=== PATIENT | female | born 1975 | race Caucasian/White ===

== ENCOUNTER 2023-01-09 21:21 | Emergency (ER) | payer OTHER ==
[2023-01-09] MEDS ORDERED: SODIUM CHLORIDE 0.9% 1,000 ML IV STA (22:03)
[2023-01-09] MEDS ORDERED: ONDANSETRON 4 MG/2 ML VIAL IVP STA (22:09)
[2023-01-09] MEDS ORDERED: KETOROLAC 15 MG/ML 1 ML VIAL IVP STA (22:25)
[2023-01-09 22:36] LABS: Basophils % (A) 0 %; Eosinophils % (A) 1 %; HCT 48.9 % (34.0-46.0); HGB 17.1 gm/dL (11.4-16.0); Hyperchromasia Slight; Lymphocytes # (A) 0.3 k/uL (1.0-4.8); Lymphocytes % (A) 3 %; MCH 31.3 pg (25.0-35.0); MCHC 35.1 g/dL (31.0-37.0); MCV 89.2 fL (80.0-100.0); Mean Platelet Volume 8.4; Monocytes # (A) 0.2 k/uL (0-1.0); Monocytes % (A) 2 %; Neutrophils % (A) 94 %; Platelet Count 157 k/uL (150-450); RBC 5.48 m/uL (3.80-5.40); RDW 12.9 % (11.5-15.5); WBC 9.5 k/uL (3.8-10.6)
[2023-01-09 22:48] LABS: ALT 24 U/L (4-34); AST 25 U/L (14-36); African American GFR (CKD) >90 (>60 ml/min/1.73 sqM); Albumin 4.5 g/dL (3.5-5.0); Alkaline Phosphatase 82 U/L (38-126); Anion Gap 12 mmol/L; Blood Urea Nitrogen 18 mg/dL (7-17); Carbon Dioxide 22 mmol/L (22-30); Chloride 105 mmol/L (98-107); Glucose 173 mg/dL (74-99); Lipase 81 U/L (23-300); Non-African American GFR(CKD) 84 (>60 ml/min/1.73 sqM); Potassium 3.7 mmol/L (3.5-5.1); Sodium 139 mmol/L (137-145); Total Bilirubin 1.2 mg/dL (0.2-1.3); Total Protein 7.9 g/dL (6.3-8.2)
--- NOTE | 2023-01-09 23:23 | CT ---
EXAMINATION TYPE: CT abdomen pelvis w con CT DLP: 1173.5 mGycm, Automated exposure control for dose reduction was used. DATE OF EXAM: 01/09/2023 11:17 PM COMPARISON: CT abdomen pelvis most recent from CLINICAL INDICATION:Female, 47 years old with history of pain vomiting; Nausea, vomiting, diarrhea. A bdominal pain. TECHNIQUE: Axial CT of the abdomen and pelvis. Sagittal and coronal reformats were created on a [employer] workstation. Contrast used:100ml mL of Isovue 300 with IV Contrast, Oral contrast used: without Oral Contrast FINDINGS: LOWER CHEST: Unremarkable ABDOMEN LIVER: Unremarkable GALLBLADDER AND BILE DUCTS: Unremarkable. PANCREAS: Unremarkable. SPLEEN: Unremarkable. ADRENAL GLANDS: Unremarkable. KIDNEYS AND URETERS: No evidence of hydronephrosis or renal calculus. The ureters are unremarkable. PELVIS BLADDER: Unremarkable REPRODUCTIVE: Right dominant ovarian follicle measuring up to 2.0 cm. Central lobular contour to the uterus suggestive of underlying fibroid. ABDOMEN & PELVIS STOMACH AND BOWEL: No evidence of bowel obstruction. Appendix is normal. PERITONEUM/RETROPERITONEUM: No evidence of pneumoperitoneum or free fluid. VASCULATURE: No evidence of aortic aneurysm. MUSCULOSKELETAL: No acute osseous abnormalities LYMPH NODES: No gross evidence for lymphadenopathy. SOFT TISSUE/ABDOMINAL WALL: Fat-containing umbilical hernia. IMPRESSION: No evidence for acute abdominal process. No bowel obstruction, appendix is normal, no obstructive uro klaudia.
--- NOTE | 2023-01-09 23:49 | ED ---
Abdominal Pain HPI - General Chief Complaint: Abdominal Pain Stated Complaint: NVD Time Seen by Provider: 01/09/23 22:02 Source: patient Mode of arrival: ambulatory Limitations: no limitations - History of Present Illness Initial Comments: Patient is a 47-year-old female presents to the emergency department for evaluation of vomiting. Patient reports intermittent generalized abdominal pain and multiple episodes of vomiting and diarrhea this evening, nonbloody. She denies fever, chills, burning with urination, blood in the urine, vaginal bleeding, vaginal discharge. She denies history of abdominal surgery. No cold- like symptoms, chest pain, shortness of breath. - Related Data Previous Rx's Medication Instructions Recorded Ibuprofen [Motrin] 800 mg PO Q8HR PRN #30 tab 01/10/23 Ondansetron Odt [Zofran Odt] 4 mg PO Q8HR PRN #10 tab 01/10/23 Allergies Allergy/AdvReac Type Severity Reaction Status Date / Time Penicillins Allergy Rash/Hives Verified 01/09/23 21:48 Review of Systems ROS Statement: Those systems with pertinent positive or pertinent negative responses have been documented in the HPI. ROS Other: All systems not noted in ROS Statement are negative. Past Medical History Past Medical History: Hypertension History of Any Multi-Drug Resistant Organisms: None Reported Past Surgical History: Section Past Psychological History: No Psychological Hx Reported Smoking Status: Never smoker Past Alcohol Use History: Occasional Past Drug Use History: None Reported General Exam Limitations: no limitations General appearance: alert, in no apparent distress Head exam: Present: atraumatic, normocephalic, normal inspection Respiratory exam: Present: normal lung sounds bilaterally. Absent: respiratory distress, wheezes, rales, rhonchi, stridor Cardiovascular Exam: Present: regular rate, normal rhythm, normal heart sounds. Absent: systolic murmur, diastolic murmur, rubs, gallop, clicks GI/Abdominal exam: Present: soft, normal bowel sounds. Absent: distended, tenderness, guarding, rebound, rigid Neurological exam: Present: alert, oriented X3, CN II-XII intact Psychiatric exam: Present: normal affect, normal mood Skin exam: Present: warm, dry, intact, normal color. Absent: rash Course Vital Signs 01/09/23 01/09/23 01/09/23 21:45 21:56 22:00 Temperature 98.0 F Pulse Rate 122 H 106 H 105 H Respiratory 22 22 21 Rate Blood Pressure 141/98 179/113 O2 Sat by Pulse 97 97 96 Oximetry 01/09/23 01/09/23 01/09/23 22:15 22:45 23:00 Temperature Pulse Rate 90 103 H Respiratory 18 17 Rate Blood Pressure 172/114 166/103 164/99 O2 Sat by Pulse 98 95 Oximetry 01/09/23 01/09/23 01/09/23 23:15 23:30 23:45 Temperature Pulse Rate 100 101 H 100 Respiratory 29 H 15 13 Rate Blood Pressure 150/93 158/103 O2 Sat by Pulse 97 96 97 Oximetry 01/09/23 01/10/23 23:53 00:00 Temperature Pulse Rate 100 96 Respiratory 16 16 Rate Blood Pressure 148/103 148/103 O2 Sat by Pulse 95 96 Oximetry Medical Decision Making - Medical Decision Making Was pt. sent in by a medical professional or institution (, PA, CABLE TOWER OPERATOR, urgent care, hospital, or intermediate...) When possible be specific @ -[No] Did you speak to anyone other than the patient for history (EMS, parent, family, police, friend...)? What history was obtained from this source @ -[No] Did you review nursing and triage notes (agree or disagree)? Why? @ -[I reviewed and agree with nursing and triage notes] Were old charts reviewed (outside hosp., previous admission, EMS record, old EKG, old radiological studies, urgent care reports/EKG's, intermediate records)? Report findings @ -[No old charts were reviewed] Differential Diagnosis (chest pain, altered mental status, abdominal pain women, abdominal pain men, vaginal bleeding, weakness, fever, dyspnea, syncope, headache, dizziness, GI bleed, back pain, seizure, CVA, palpatations, mental health)? @ -Differential Abdominal Pain Women: Appendicitis, Cholecystitis, diverticulosis, ischemic bowel, pancreatitis, hepatitis, UTI, gastroenteritis, AAA, incarcerated hernia, bowel obstruction, constipation, inflammatory bowel, hepatitis, peptic ulcer disease, splenic infarction, perforated viscus, vulvitis, ovarian torsion, PID, kidney stone, ir[place] cent[place] abruption, this is not meant to be an all-inclusive list EKG interpreted by me (3pts min.). @ -[As above] X-rays interpreted by me (1pt min.). @ -[None done] CT interpreted by me (1pt min.). @ -Yes, CT of the abdomen and pelvis with contrast is negative for acute process. U/S interpreted by me (1pt. min.). @ -[None done] What testing was considered but not performed or refused? (CT, X-rays, U/S, labs)? Why? @ -[None] What meds were considered but not given or refused? Why? @ -[None] Did you discuss the management of the patient with other professionals (professionals i.e. , PA, CABLE TOWER OPERATOR, lab, RT, psych nurse, social media designer, custodial officer, teacher, navigating officer, casework manager)? Give summary @ -[No] Was smoking cessation discussed for >3mins.? @ -[No] Was critical care preformed (if so, how long)? @ -[No] Were there social determinants of health that impacted care today? How? (Homelessness, low income, unemployed, alcoholism, drug addiction, transportation, low edu. Level, literacy, decrease access to med. care, long term, rehab)? @ -[No] Was there de-escalation of care discussed even if they declined (Discuss DNR or withdrawal of care, Hospice)? DNR status @ -[No] What co-morbidities impacted this encounter? (DM, HTN, Smoking, COPD, CAD, Cancer, CVA, ARF, Chemo, Hep., AIDS, mental health diagnosis, sleep apnea, morbid obesity)? @ -[None] Was patient admitted / discharged? Hospital course, mention meds given and route, prescriptions, significant lab abnormalities, going to OR and other pertinent info. @ -Patient presenting for evaluation of vomiting. Patient is vomiting upon arriving to the emergency department. She was given Zofran. She is afebrile. The abdomen is soft and nontender. Laboratory studies obtained and are relatively unremarkable other than dehydration which was treated with large fluid bolus. CT of the abdomen and pelvis with contrast is negative for acute process. Patient given Toradol with resolution of pain. She did not have any further episodes of vomiting in the emergency department. Blood pressure did remain high during stay. Patient has history of hypertension she is not on any medications. She does not check her blood pressure home. She does not have chest pain, SOB, headache. Patient will be discharged with symptomatic management for possible gastroenteritis. She will follow-up with primary care provider for further evaluation and management of her symptoms and blood pressure. Undiagnosed new problem with uncertain prognosis? @ -[No] Drug Therapy requiring intensive monitoring for toxicity (Heparin, Nitro, Insulin, Cardizem)? @ -[No] Were any procedures done? @ -[No] Diagnosis/symptom? @ -abdominal pain, vomiting, diarrhea Acute, or Chronic, or Acute on Chronic? @ -acute Uncomplicated (without systemic symptoms) or Complicated (systemic symptoms)? @ -uncomplicated Side effects of treatment? @ -[No] Exacerbation, Progression, or Severe Exacerbation? @ -[No] Poses a threat to life or bodily function? How? (Chest pain, [place], [place], pneumonia, PE, COPD, DKA, ARF, appy, cholecystitis, CVA, Diverticulitis, Homicidal, Suicidal, threat to staff... and all critical care pts) @ -[No] Dr. Nguyen is my attending - Lab Data Result diagrams: 01/09/23 22:00 01/09/23 22:00 Lab Results 01/09/23 01/09/23 01/09/23 Range/Units 22:00 22:00 22:41 WBC 9.5 (3.8-10.6) k/uL RBC 5.48 H (3.80-5.40) m/uL Hgb 17.1 H (11.4-16.0) gm/dL Hct 48.9 H (34.0-46.0) % MCV 89.2 (80.0-100.0) fL MCH 31.3 (25.0-35.0) pg MCHC 35.1 (31.0-37.0) g/dL RDW 12.9 (11.5-15.5) % Plt Count 157 (150-450) k/uL MPV 8.4 Neutrophils % 94 % Lymphocytes % 3 % Monocytes % 2 % Eosinophils % 1 % Basophils % 0 % Neutrophils # 9.0 H (1.3-7.7) k/uL Lymphocytes # 0.3 L (1.0-4.8) k/uL Monocytes # 0.2 (0-1.0) k/uL Eosinophils # 0.0 (0-0.7) k/uL Basophils # 0.0 (0-0.2) k/uL Hyperchromasia Slight Sodium 139 (137-145) mmol/L Potassium 3.7 (3.5-5.1) mmol/L Chloride 105 (98-107) mmol/L Carbon Dioxide 22 (22-30) mmol/L Anion Gap 12 mmol/L BUN 18 H (7-17) mg/dL Creatinine 0.83 (0.52-1.04) mg/dL Est GFR (CKD-EPI)AfAm >90 (>60 ml/min/1.73 sqM) Est GFR (CKD-EPI)NonAf 84 (>60 ml/min/1.73 sqM) Glucose 173 H (74-99) mg/dL Calcium 9.0 (8.4-10.2) mg/dL Total Bilirubin 1.2 (0.2-1.3) mg/dL AST 25 (14-36) U/L ALT 24 (4-34) U/L Alkaline Phosphatase 82 (38-126) U/L Total Protein 7.9 (6.3-8.2) g/dL Albumin 4.5 (3.5-5.0) g/dL Lipase 81 (23-300) U/L Influenza Type A RNA Not Detected (Not Detectd) Influenza Type B (PCR) Not Detected (Not Detectd) Disposition Clinical Impression: Abdominal pain, Nausea and vomiting, Diarrhea Disposition: HOME SELF-CARE Condition: Good Instructions (If sedation given, give patient instructions): Abdominal Pain (ED), Hypertension (ED) Additional Instructions: Take medication as directed. Increase water intake as tolerated. Please follow up with primary care provider for further evaluation and management of your symptoms as well as blood pressure as it was elevated today. Return to the emergency department if you experience new, concerning, or worsening symptoms. Is patient prescribed a controlled substance at d/c from ED?: No Referrals: None,Stated [Primary Care Provider] - 1-2 days
[2023-01-09 23:55] VITALS: RESP 16
[2023-01-10 00:32] VITALS: BP 154/102; PULSE 94; TEMP 98.2
== END 2023-01-10 00:29 | disposition home or self-care (01) ==
LOC: EC 21:21
DX: R10.9 Unspecified abdominal pain (principal); R11.2 Nausea with vomiting, unspecified; R19.7 Diarrhea, unspecified; I10 Essential (primary) hypertension; Z88.0 Allergy status to penicillin
CPT/HCPCS: 80053; 83690; 85025; 87502; 74177; 99284; 96374; 96375; 96361; J2405; J1885; Q9967; 36415